=== PATIENT | female | born 1945 | race Caucasian/White ===

== ENCOUNTER 2025-02-03 14:08 | Emergency (ER) | payer MEDICARE, SELFPAY ==
[2025-02-03 14:17] VITALS: BP 141/70
[2025-02-03 14:44] LABS: Hematocrit 37.4 % (37.0-47.0); Hemoglobin 12.6 g/dL (12.0-16.0); Mean Corp Hgb Conc. 33.7 g/dL (33.0-37.0); Mean Corpuscular Volume 88.4 fL (81.0-99.0); Nucleated Red Blood Cells % 0 %; Platelet Count 284 10^3/uL (130-400); Red Cell Dist. Width 12.9 % (11.5-14.5)
[2025-02-03 15:04] LABS: COVID-19 Antigen Negative (Negative)
[2025-02-03 15:05] LABS: ALT (SGPT) 22 U/L (0-35); AST (SGOT) 29 U/L (14-36); Albumin 4.2 g/dl (3.5-5.0); Alkaline Phosphatase 111 U/L (38-126); Blood Urea Nitrogen 15 mg/dl (7-17); Calcium 9.3 mg/dl (8.4-10.2); Carbon Dioxide 24 mmol/L (22-30); Chloride 103 mmol/L (98-107); Glucose 113 mg/dl (70-99); Potassium 4.0 mmol/L (3.5-5.1); Sodium 133 mmol/L (135-145); Total Protein 6.5 g/dl (6.3-8.2); eGFR > 60.00
[2025-02-03 17:02] VITALS: BP 147/73
[2025-02-03 18:47] VITALS: BMI 27.9
--- NOTE | 2025-02-03 19:21 | ED.GENMED ---
History of Present Illness
General
Chief Complaint: Cough
Time Seen by Provider: 02/03/25 17:52
History of Present Illness
History of Present Illness:
79-year-old female presents the emergency department for evaluation of persistent coughing for the past 3 to 4 weeks. She notes numerous infectious exposures at the onset of symptoms. Since that time her cough send from a dry minimal cough to a
frequent productive cough. Denies chest pain or shortness of breath. No fevers or chills.
Review of Systems
Review of Systems
Allergies reviewed?: Yes
All Other Systems: ROS reviewed and negative except as documented in HPI and ROS
Phy Exam
Physical Exam
Physical Exam:
GEN: Well appearing, NAD, WDWN
HEENT: Oral mucosa moist, no scleral icterus
Cardiac: Regular rate and rhythm, no murmur
Lung: No respiratory distress, no tachypnea lungs clear to auscultation bilaterally
MSK: No gross deformity or injuries
Skin: Good color, no pallor or jaundice, no rashes
Neuro: AO x3, moves all extremities freely
Psych: Calm, cooperative
Course
Orders/Labs/Results
Orders:
Orders
02/03/25 14:20
CR Chest - 2 Views Urgent
Comment:
Reason For Exam: cough, r/o pneumonia
02/03/25 14:25
COVID-19 Antigen Urgent
Source: Nasal Swab
Complete Blood Count/With Diff Urgent
Comprehensive Metabolic Panel Urgent
Influenza A+B Rapid Molecular Urgent
BERE Source: Nasal Swab
Specimen Description:
02/03/25 19:21
Doxycycline [Vibramycin] 100 mg PO NOW STA
Abnormal Lab Results
02/03/25
14:25
MPV 10.8 H fL
(7.4-10.4)
Absolute Monos (auto) 0.7 H 10^3/uL
(0.1-0.6)
Monocytes % 10.1 H %
(1.7-9.3)
Sodium 133 L mmol/L
(135-145)
Glucose 113 H mg/dl
(70-99)
02/03/25 14:25
02/03/25 14:25
Vital Signs
Initial and Last Documented VS:
Initial Vital Signs
Temp Pulse Resp BP Pulse Ox
98.3 F 72 18 141/70 98
02/03/25 14:17 02/03/25 14:17 02/03/25 14:17 02/03/25 14:17 02/03/25 14:17
Last Documented Vital Signs
Temp Pulse Resp BP Pulse Ox
98.3 F 62 17 147/73 96
02/03/25 14:17 02/03/25 17:02 02/03/25 17:02 02/03/25 17:02 02/03/25 19:21
MDM/Problems Addressed
MDM/Problems Addressed:
Labs are reassuring, chest x-ray does show faint abnormality in the left lower lobe that could resent present scarring or atelectasis versus pneumonia. Will cover with a course of doxycycline given duration of symptoms greater than 3 weeks.
*Pulse Oximetry
SaO2: 96
Oxygen Mode of Delivery: Room air
Patient hypoxic: no
*Critical Care Note
Total Time (30-74mins, 75-104mins- exclusive of procedures): Not Applicable
ED Attending Note
-
Portions of this chart may have been created with voice recognition software.� Occasional wrong word or��sound alike� substitutions may have occurred due to the inherent limitations of voice recognition software.
Discharge Plan
Departure
Patient Disposition: Home (Routine Discharge)
Date of Disposition: 02/03/25
Time of Disposition: 19:21
Patient with high blood pressure during this ER visit?: No
Discharge Problem:
Left lower lobe pneumonia
Instructions: Pneumonia, Adult (DC)
Prescriptions:
New
doxycycline monohydrate 100 mg capsule
100 mg PO BID Qty: 9 0RF
Referrals:
NONE,* [Family Provider, Internal Medicine]
Interventions
Interventions:
*General Assessment Last Done: 02/03/25 14:19
*Neglect/Abuse Screening Last Done: 02/03/25 14:19
*ED COVID-19 Vaccine History Last Done: 02/03/25 14:19
*ED Influenza Vaccine History Last Done: 02/03/25 14:19
[facility] Fall Risk Assessment Tool Last Done: 02/03/25 18:47
*Risk Screen - Suicide (C-SSRS) Last Done: 02/03/25 14:19
*Nursing Disposition Last Done: 02/03/25 19:40
ED- Pulmonary Assessment Last Done: 02/03/25 18:47
Discharge Date and Time
Discharge Date/Time: 02/03/25 19:40
Print Language: WOLOF
[2025-02-03] MEDS: VIBRAMYCIN 100 MG PO (19:30)
== END 2025-02-03 19:40 | disposition home or self-care (01) ==
LOC: EMR 14:08
PROVIDERS: Emergency Medicine; EMERGENCY PHYSICIAN Emergency Medicine
DX: J18.9 Pneumonia, unspecified organism (principal); Z11.52 Encounter for screening for COVID-19
CPT/HCPCS: 99284; 71046; 80053; 85025; 87502; 87811